=== PATIENT | male | born 1970 | race Caucasian/White ===

== ENCOUNTER 2021-09-28 03:29 | Inpatient (IN) | payer OTHER, SELFPAY ==
[2021-09-28] VITALS (10 sets, daily range): BP systolic 122–166; BP diastolic 58–88; PULSE 77–94; RESP 16–20; TEMP 36.5–36.7; O2SAT 94–99; BMI 23.6; BMI 21.5
--- NOTE | 2021-09-28 03:38 | EKG12_ITS ---
Test Reason : OVERDOSE Blood Pressure : / mmHG Vent. Rate : 099 BPM Atrial Rate : 099 BPM P-R Int : 152 ms QRS Dur : 088 ms QT Int : 382 ms P-R-T Axes : 065 047 039 degrees QTc Int : 490 ms Normal sinus rhythm Left ventricular hypertrophy Nonspecific ST and T wave abnormality Prolonged QT Abnormal ECG Confirmed by RACHELLE GLASER, TRACEY ([id number]), editor producer CORNEL DUBON ([id number]) on 09/30/2021 1:32:56 PM Referred By: ANNELIESE Confirmed By:TRACEY BUSH MD
--- NOTE | 2021-09-28 03:40 | EX.ED.VIS.PS ---
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 Narrative Narrative: Patient is a 51-year-old male who was brought to the emergency department by ambulance. His contacted police and EMS because he voiced that he wanted to harm himself. Patient informed me that he learned yesterday that his has been having an affair for 2 years. Patient requires repeated verbal stimuli to answer questions. He does admit to smoking and alcohol consumption daily. States he drinks heavily. He apparently drank alcohol when he took the unknown quantity of hydrochlorothiazide, Celexa and losartan. He has no prior history of depression or suicidal attempt. Prior similar symptoms: No Recent Illness/Hospitalization: No [facility] Medical History (Updated 09/28/21 @ 04:[address] Zach Rose MD) Alcohol abuse Asthma Bipolar disorder Hypertension Home Medications citalopram mg PO DAILY 09/28/21 [History Last Taken Unknown] hydrochlorothiazide 09/28/21 [History Last Taken Unknown] losartan 09/28/21 [History Last Taken Unknown] Allergy/AdvReac Type Severity Reaction Status Date / Time No Known Allergies Allergy Verified 09/28/21 03:38 Surgical History unable to obtain unable to obtain Social History (Updated 09/28/21 @ 03:[address] Zach Rose MD) household members: spouse Smoking Status: Current every day smoker tobacco type: cigarettes alcohol intake: current alcohol intake frequency: 3 or more drinks per day substance use type: does not use ROS ROS ED Review of Systems ROS Unobtainable: due to mental condition and due to mental status Constitutional Constitutional ED: Denies chills, fever(s) or subjective ENT ENT ED: Denies ear pain, rhinorrhea or sore throat Cardiovascular Cardiovascular: Denies chest pain or palpitations Respiratory/Chest Respiratory/Chest: Denies cough, dyspnea or dyspnea on exertion Gastrointestinal Gastrointestinal: Denies melena, nausea or vomiting Genitourinary Genitourinary ED: Denies dysuria, hematuria or urinary frequency Musculoskeletal Musculoskeletal: Denies arthralgias, back pain, myalgias or neck pain Integumentary Denies rash Neurologic Neurologic: Denies headache(s), paresthesias or weakness Psychiatric Psychiatric: Reports depression, suicidal ideation and suicidal thoughts EXAM Physical Exam Const Vital Signs: 09/28/21 03:32 09/28/21 03:43 Temperature 98.0 F Temperature Source Temporal Pulse Rate 92 84 Respiratory Rate 18 20 H Blood Pressure 148/78 H Blood Pressure Mean 101 Pulse Ox 99 Oxygen Delivery Method Room Air Positive well nourished and well developed General Appearance ED: well developed and other Patient is somnolent. He does answer questions. He is not oriented to time. ; Negative for pallor HEENT Reports TM's clear and moist mucous membranes HEENT Narrative: Nares patent. Ears normal. normocephalic and atraumatic Tympanic Membrane ED: Yes TM's clear Eyes PERRL and EOMs intact bilaterally General Eye ED: Negative for pale conjunctiva or scleral icterus Neck no lymphadenopathy, supple and no JVD General: Negative for tenderness Resp normal respiratory effort and clear to auscultation bilaterally Cardio S1 normal heart sound, S2 normal heart sound and no murmurs Rate: regular rate Rhythm: regular rhythm GI non-tender, non-distended and no masses Auscultation: normoactive bowel sounds Palpation: soft; Negative for hepatomegaly or splenomegaly Back/Spine no CVA tenderness Extremity normal to inspection General Extremety ED: Negative for edema or tenderness General Extremity: Negative for edema Neuro No oriented x3, CN's II-XII intact bilaterally and deep tendon reflexes 2+ bilaterally [place] Coma Scale: document GCS findings To Voice Obeys Commands Confused 13 Sensorium / Orientation: oriented to person and oriented to place; Negative for alert or oriented to time Sensory Exam: other There is no clonus or Babinski sign noted right or left Motor Exam: muscle tone normal throughout Psych cooperative, denies hallucinations and denies homicidal ideation; Negative for mental status grossly normal, thought process normal or denies suicidal ideation Appearance: grossly normal Attitude: withdrawn Activity / Motor Behavior: psychomotor slowing and avoids eye contact; Negative for appropriate eye contact Speech: slow Mood & Affect: depressed, sad and tearful Thought Process: impoverished Thought Content: suicidality, No delusion(s), No hallucination(s), No rumination(s) and No obsession(s) Attention / Concentration: attention grossly impaired and concentration grossly impaired; Negative for attention grossly intact or concentration grossly intact Memory / Cognition: memory grossly intact Insight: questionable Judgement: poor Skin General Skin Exam: Negative for jaundice or pallor Lesions: no lesions Rashes: no rashes MDM MDM MDM Narrative Medical decision making narrative: [place] slip was completed by me. Will obtain appropriate laboratory testing including tox screen and alcohol level. Patient was placed on the monitor. IV was established. He was made NPO. EKG was obtained to assess QT interval and rule out ischemic changes or changes due to hypokalemia or hyperkalemia. Patient has mild hypokalemia most likely due to thiazide diuretic. Since he has no EKG changes and there is no plan for emergent surgical intervention there is no need to correct him acutely. He will require IV potassium since he has altered mental status. Patient was reassessed prior to paging the hospitalist at [id number]. He still remains somnolent. He is still disoriented. He was informed that he is not permitted to go home. He has been informed that he has been pink slipped. He was informed once he is much more alert he will need to be assessed by licensed practitioner for psychiatric admission. Lab Data Attestation: I reviewed the patient's lab results. Lab results narrative: CBC and H&H are unremarkable. Coags which is an assessment of patient's liver function was normal. Comprehensive metabolic panel reveals potassium of 3.1 which is insignificant glucose of 152 which is insignificant. Comprehensive panel otherwise unremarkable. Rapid Covid test is negative. Patient's tox screen does not explain his somnolence nor does his alcohol level since he admits to drinking daily. Suspect this is due to to the combination of meds he took in an attempt to kill himself. Case was discussed with the hospitalist. He will be in observation PCU. Labs: Laboratory Results - last 24 hr 09/28/21 09/28/21 09/28/21 03:42 03:42 03:42 WBC 10.3 RBC 4.82 Hgb 15.4 Hct 45.0 MCV 93.4 MCH 32.0 MCHC 34.2 RDW Std Deviation 45.8 H RDW Coeff of Veronica 13.3 Plt Count 316 MPV 10.8 Immature Gran % (Auto) 0.300 Neut % (Auto) 70.9 H Lymph % (Auto) 18.9 L [place] % (Auto) 8.9 Eos % (Auto) 0.7 Baso % (Auto) 0.3 Absolute Neuts (auto) 7.3 Absolute Lymphs (auto) 1.94 Nucleated RBC % 0 PT 11.9 INR 0.9 Sodium 137 Potassium 3.1 L Chloride 100 Carbon Dioxide 26.0 Anion Gap 11 BUN 10 Creatinine 1.02 Estim Creat Clear Calc 92.28 Est GFR (MDRD) Af Amer 99 Est GFR (MDRD) Non-Af 82 BUN/Creatinine Ratio 9.8 L Glucose 152 H Calcium 8.8 Total Bilirubin 0.60 AST 26 ALT 28 Alkaline Phosphatase 114 Total Protein 8.1 Albumin 4.3 Globulin 3.8 Albumin/Globulin Ratio 1.1 Urine Color Urine Clarity Urine pH Ur Specific [employer] Urine Protein Urine Glucose (UA) Urine Ketones Urine Occult Blood Urine Nitrite Urine Bilirubin Urine Urobilinogen Ur Leukocyte Esterase Urine RBC Urine WBC Ur Squamous Epith Cells Urine Bacteria Urine Mucus Urine Opiates Screen Urine Methadone Screen Ur Barbiturates Screen Ur Phencyclidine Scrn Ur Amphetamines Screen U Methamphetamin-MDMA U Benzodiazepines Scrn Urine Cocaine Screen U Cannabinoids Screen Ur Drug Screen Comment Ethyl Alcohol 09/28/21 09/28/21 09/28/21 03:42 04:10 04:10 WBC RBC Hgb Hct MCV MCH MCHC RDW Std Deviation RDW Coeff of Veronica Plt Count MPV Immature Gran % (Auto) Neut % (Auto) Lymph % (Auto) [place] % (Auto) Eos % (Auto) Baso % (Auto) Absolute Neuts (auto) Absolute Lymphs (auto) Nucleated RBC % PT INR Sodium Potassium Chloride Carbon Dioxide Anion Gap BUN Creatinine Estim Creat Clear Calc Est GFR (MDRD) Af Amer Est GFR (MDRD) Non-Af BUN/Creatinine Ratio Glucose Calcium Total Bilirubin AST ALT Alkaline Phosphatase Total Protein Albumin Globulin Albumin/Globulin Ratio Urine Color Yellow Urine Clarity Clear Urine pH 7.0 [address] [employer] 1.010 Urine Protein Negative Urine Glucose (UA) Normal Urine Ketones Negative Urine Occult Blood 10 H Urine Nitrite Negative Urine Bilirubin Negative Urine Urobilinogen Normal Ur Leukocyte Esterase Negative Urine RBC 0 SEEN Urine WBC 0 SEEN Ur Squamous Epith Cells 0 SEEN Urine Bacteria 0 SEEN Urine Mucus 0 SEEN Urine Opiates Screen NEGATIVE Urine Methadone Screen NEGATIVE Ur Barbiturates Screen NEGATIVE Ur Phencyclidine Scrn NEGATIVE Ur Amphetamines Screen NEGATIVE U Methamphetamin-MDMA NEGATIVE U Benzodiazepines Scrn NEGATIVE Urine Cocaine Screen NEGATIVE U Cannabinoids Screen NEGATIVE Ur Drug Screen Comment Ethyl Alcohol 78.0 Rhythm Strip Rhythm Strip: Sinus Rhythm Rate: 98 Ectopy: None EKG Initial EKG: Attestation: I personally reviewed and interpreted this EKG as follows: Interpretation: Sinus Rhythm (Normal sinus rhythm with a ventricular rate of 99. [place] interval is 152 ms. QRS durations 88 ms. QT durations 182 ms with a QTC of 490 ms which is prolonged. [place] is normal. There is evidence of ST-T wave abnormality which is nonspecific. There is also evidence of decreased anterior force. Ther) Critical Care Time Critical Care Time: Yes Critical care time (excluding procedures): 30-74 minutes (32 min), Including time spent: (History, physical, discussion with law enforcement, interpretation of laboratory results, repeat evaluation), Discussing w/Patient &/or Family/Civil Geotechnical Engineer (Spoke to son who confirmed the pills he took.), Discussing w/Consultants (Spoke with hospitalist for admission) and Arranging Admission or Transfer Discharge Plan Dx/Rx/DC Orders Clinical Impression: Polysubstance overdose, Suicidal behavior with attempted self-injury, Acute alteration in mental status, Hypokalemia Disposition Disposition: Acute Care Hospital [facility]
[2021-09-28 03:54] LABS: Absolute Lymphocyte Count 1.94 X10^3/uL (0.83-4.51); Absolute Neutrophil Count 7.3 X10^3/uL (2.0-7.7); Basophil# 0.03 X10^3/uL; Basophil% 0.3 % (0-1); Eosinophil# 0.07 X10^3/uL; Eosinophils% 0.7 % (0-5); Hemoglobin 15.4 g/dL (13.0-16.5); Lymphocyte # 1.94 X10^3/ul (0.83-4.51); Lymphocyte % 18.9 % (19-41); Mean Corp Hgb Conc 34.2 g/dL (32-36); Mean Corpuscular Volume 93.4 fL (80-94); Mean Platelet Vol. 10.8 fl (6.2-12.0); Monocyte# 0.91 X10^3/uL; Monocyte% 8.9 % (0-10); NRBC Flagged by Analyzer 0 % (0-5); Neutrophil # 7.27 X10^3/uL (2.7-7.7); Neutrophil % 70.9 % (47-70); Platelet Count 316 K/mm3 (150-450); RBC Distribution Width CV 13.3 % (11.6-14.6); RBC Distribution Width SD 45.8 fl (35.1-43.9); Red Blood Count 4.82 M/mm3 (4.6-6.2); White Blood Count 10.3 K/mm3 (4.4-11.0)
[2021-09-28 04:01] LABS: International Normalized Ratio 0.9; Prothrombin Time (Protime)PT. 11.9 SECONDS (11.7-14.9)
[2021-09-28 04:09] LABS: ALB/GLOB Ratio 1.1 RATIO (0.9-2.4); AST(SGOT) 26 U/L (15-37); Alanine Aminotransfer ALT/SGPT 28 U/L (16-61); Albumin, Serum 4.3 g/dL (3.2-5.0); Alkaline Phosphatase 114 U/L (45-117); Anion Gap 11 (5-15); BUN 10 mg/dL (7-18); BUN/Creat Ratio 9.8 RATIO (10-20); Calcium,Total 8.8 mg/dL (8.5-10.1); Chloride 100 mmol/L (98-107); Creatinine, Serum 1.02 mg/dL (0.70-1.30); EST Glomerular Filtration Rate 82 mL/min (>60); Est Glom Filt Rate - Afr Amer 99 mL/min (>60); Estimated Creatinine Clearance 92.28 ml/min; Globulin 3.8 g/dL (2.2-4.2); Glucose 152 mg/dL (74-106); Potassium 3.1 mmol/L (3.5-5.1); Protein, Total 8.1 g/dL (6.4-8.2); Sodium Level 137 mmol/L (136-145)
[2021-09-28 04:14] LABS: Bacteria 0 SEEN /hpf (None Seen); Mucous, Urine 0 SEEN /hpf (<or=2+); Red Blood Cells-Urine 0 SEEN /hpf (0-5); Squamous Epithelial Cells - UA 0 SEEN /hpf (0-5); White Blood Cells 0 SEEN /hpf (0-5)
[2021-09-28 04:17] LABS: Color, Urine Yellow (Yellow); Glucose, Dipstick Normal (Normal); Ketone-Dipstick Negative (Negative); Leukocyte Esterase-Dipstick Negative /ul (Negative); Nitrite-Dipstick Negative (Negative); Occult Blood-Urine 10 /ul (Negative); Protein-Dipstick Negative (Negative); Urine Bilirubin Dipstick Negative (Negative); Urine Clarity Clear (Clear); Urine Urobilinogen Normal (Normal)
[2021-09-28 04:26] LABS: Amphetamine Urine VISTA NEGATIVE (<1000 ng/mL); Barbiturate Urine VISTA NEGATIVE (< 200 ng/mL); Benzodiazepine Urine VISTA NEGATIVE (< 200 ng/mL); Cocaine Urine VISTA NEGATIVE (< 300 ng/mL); Ecstacy Urine VISTA NEGATIVE (< 500 ng/mL); Methadone Urine VISTA NEGATIVE (< 300 ng/mL); PCP Urine VISTA NEGATIVE (< 25 ng/mL); THC Urine VISTA NEGATIVE (< 50 ng/mL); Vista UDS pH Range 6
--- NOTE | 2021-09-28 04:51 | PCM.HP.STD ---
HPI - General HPI Narrative FELIX ERWIN, is a 51 M with a significant history of alcohol abuse; asthma; and bipolar disorder who presents to the emergency department with overdose in a suicide attempt. Reportedly patient had that his has been cheating on him for the past 2 years. Reportedly he took extra doses of his prescribed Celexa, hydrochlorothiazide and losartan. Patient denies any chest pain, shortness of breath, headache, nausea or vomiting. [facility] Medical History Alcohol abuse Asthma Bipolar disorder Hypertension Home Medications citalopram mg PO DAILY 09/28/21 [History Last Taken Unknown] hydrochlorothiazide 09/28/21 [History Last Taken Unknown] losartan 09/28/21 [History Last Taken Unknown] Allergy/AdvReac Type Severity Reaction Status Date / Time No Known Allergies Allergy Verified 09/28/21 03:38 Family History other other (Patient denies knowledge of any family medical condition.) Surgical History no surgical history no surgical history Social History household members: spouse Smoking Status: Current every day smoker tobacco type: cigarettes alcohol intake: current alcohol intake frequency: 3 or more drinks per day substance use type: does not use ROS ROS Narrative Pertinent positives and pertinent negatives as noted in HPI. All other systems were reviewed and are negative. Vital Signs Vital Signs Vital Signs: 09/28/21 03:32 09/28/21 03:43 Temperature 98.0 F Temperature Source Temporal Pulse Rate 92 84 Respiratory Rate 18 20 H Blood Pressure 148/78 H Blood Pressure Mean 101 Pulse Ox 99 Oxygen Delivery Method Room Air Weight Weight: 77 kg Body Mass Index (BMI) 23.6 Physical Exam Narrative Physical exam: General: Well-nourished, well-developed. Head: Normocephalic, atraumatic, no tenderness Eyes: Vision is grossly intact. ENT, no trauma, moist mucous membranes, no rhinorrhea Neck: Nontender, full range of motion, no spinal tenderness, deformities, step-off CVS: Regular rate and rhythm. S1-S2 present. No murmur, gallop or rub. Respiratory : clear to auscultation bilaterally, chest wall nontender, no wheezing Abdomen: Soft, nontender, nondistended, normal bowel sounds, no masses : Deferred Back: Nontender, no CVA tenderness, no midline spinal tenderness, deformities, step-offs Extremities: Nontender full range of motion, no trauma Skin: Normal color, no trauma, abrasions Neuro: Hypoalert. Patient knows his names. He does not answer further orientation questions. All what he says is that he is in a room. He want to go home. Psychiatry: Depressed. Slow speech. Results Lab / Micro Data Result Diagrams: 09/28/21 03:42 09/28/21 03:42 Labs: Laboratory Results - last 24 hr 09/28/21 03:42: WBC 10.3, RBC 4.82, Hgb 15.4, Hct 45.0, MCV 93.4, MCH 32.0, MCHC 34.2, RDW Std Deviation 45.8 H, RDW Coeff of Veronica 13.3, Plt Count 316, MPV 10.8, Immature Gran % (Auto) 0.300, Neut % (Auto) 70.9 H, Lymph % (Auto) 18.9 L, [place] % (Auto) 8.9, Eos % (Auto) 0.7, Baso % (Auto) 0.3, Absolute Neuts (auto) 7.3, Absolute Lymphs (auto) 1.94, Nucleated RBC % 0 09/28/21 03:42: PT 11.9, INR 0.9 09/28/21 03:42: Sodium 137, Potassium 3.1 L, Chloride 100, Carbon Dioxide 26.0, Anion Gap 11, BUN 10, Creatinine 1.02, Estim Creat Clear Calc 92.28, Est GFR (MDRD) Af Amer 99, Est GFR (MDRD) Non-Af 82, BUN/Creatinine Ratio 9.8 L, Glucose 152 H, Calcium 8.8, Total Bilirubin 0.60, AST 26, ALT 28, Alkaline Phosphatase 114, Total Protein 8.1, Albumin 4.3, Globulin 3.8, Albumin/Globulin Ratio 1.1 09/28/21 03:42: Ethyl Alcohol 78.0 09/28/21 04:10: Urine Color Yellow, Urine Clarity Clear, Urine pH 7.0, Ur Specific [place] 1.010, Urine Protein Negative, Urine Glucose (UA) Normal, Urine Ketones Negative, Urine Occult Blood 10 H, Urine Nitrite Negative, Urine Bilirubin Negative, Urine Urobilinogen Normal, Ur Leukocyte Esterase Negative, Urine RBC 0 SEEN, Urine WBC 0 SEEN, Ur Squamous Epith Cells 0 SEEN, Urine Bacteria 0 SEEN, Urine Mucus 0 SEEN 09/28/21 04:10: Urine Opiates Screen NEGATIVE, Urine Methadone Screen NEGATIVE, Ur Barbiturates Screen NEGATIVE, Ur Phencyclidine Scrn NEGATIVE, Ur Amphetamines Screen NEGATIVE, U Methamphetamin-MDMA NEGATIVE, U Benzodiazepines Scrn NEGATIVE, Urine Cocaine Screen NEGATIVE, U Cannabinoids Screen NEGATIVE, Ur Drug Screen Comment Micro: Microbiology 09/28/21 03:42 Nasal Secretion SARS-CoV-2 Antigen (Rapid) - Final Rhythm Strip Rhythm Strip: Sinus Rhythm Rate: 98 Ectopy: None Assessment & Plan Assessment/Plan (1) Polysubstance overdose: QUALIFIERS: Encounter type: initial encounter Injury intent: intentional self-harm Qualified Code(s): T50.902A - Poisoning by unspecified drugs, medicaments and biological substances, intentional self-harm, initial encounter (2) Chronic alcoholism: (3) Suicide attempt: (4) Tobacco abuse: (5) Hypokalemia: PLAN: Polysubstance overdose and suicidal attempt Will observe at the hospital. Suicidal precautions. EKG showed elongation of QTc. Avoid QTC prolongation drugs. Keep n.p.o. until patient is alert. Hold all home medications. Review of labs showed normal CBC. Hypokalemia Potassium of 3.1. Check magnesium. Trend CMP. Tobacco abuse Counseled liquid nicotine patch. Alcoholism. Patient drinks about 8 cans of beer per day. He has been drinking for years. At this time no phenobarbital or Ativan will be ordered since patient is hypoalert. Thiamine IV and folic IV ordered. Hypertension Blood pressure is not within goal. However for now we will hold all blood pressure medications at this time. Trend blood pressures. DVT prophylaxis: Low risk on observation status SCD ordered. Charges/Coding Multi Select Codes Visit Charges Observation E&M Codin Initial observation care L3
[2021-09-28 06:14] LABS: Magnesium 2.5 mg/dL (1.6-2.6)
--- NOTE | 2021-09-28 07:42 | PCS.PANDOC ---
PANDEMIC DOCUMENTATION INITIATED: Date: 05/05/2021 Time: 190
--- NOTE | 2021-09-28 07:54 | EKG12_ITS ---
Test Reason : OVERDOSE Blood Pressure : / mmHG Vent. Rate : 081 BPM Atrial Rate : 081 BPM P-R Int : 160 ms QRS Dur : 082 ms QT Int : 400 ms P-R-T Axes : 077 064 039 degrees QTc Int : 464 ms Normal sinus rhythm Normal ECG When compared with ECG of 28-SEP-2021 03:55, MANUAL COMPARISON REQUIRED, DATA IS UNCONFIRMED Confirmed by JENARO GLASER, OLIVA ([id number]), publications editor LARS NOBLE ([id number]) on 10/03/2021 7:59:46 AM Referred By: NICOLÁS Confirmed By:ALINA EASON MD
[2021-09-28] MEDS: Potassium Chloride Oral Tablet 20 MEQ 40 MEQ PO (09:21)
[2021-09-28] MEDS: Folic Acid 1 MG Tablet PO (11:48)
[2021-09-28] MEDS: Thiamine Hydrochloride 100 MG Tablet PO (11:48)
[2021-09-28 12:54] LABS: ALB/GLOB Ratio 1.1 RATIO (0.9-2.4); AST(SGOT) 22 U/L (15-37); Alanine Aminotransfer ALT/SGPT 27 U/L (16-61); Albumin, Serum 3.9 g/dL (3.2-5.0); Alkaline Phosphatase 108 U/L (45-117); Anion Gap 8 (5-15); BUN 9 mg/dL (7-18); BUN/Creat Ratio 11.6 RATIO (10-20); Calcium,Total 8.6 mg/dL (8.5-10.1); Chloride 105 mmol/L (98-107); Creatinine, Serum 0.78 mg/dL (0.70-1.30); EST Glomerular Filtration Rate 113 mL/min (>60); Est Glom Filt Rate - Afr Amer 136 mL/min (>60); Estimated Creatinine Clearance 115.54 ml/min; Globulin 3.7 g/dL (2.2-4.2); Glucose 108 mg/dL (74-106); Potassium 3.9 mmol/L (3.5-5.1); Protein, Total 7.6 g/dL (6.4-8.2); Sodium Level 139 mmol/L (136-145)
--- NOTE | 2021-09-28 17:22 | PN.HOSP_ITS ---
Hospitalist Note Patient was admitted early this morning with an intentional overdose of Celexa, hydrochlorothiazide, losartan. Since his admission his mental status has markedly improved and appears to be back to baseline. His blood pressures have been remained stable and in fact are mildly elevated. This should be remedied with the reinitiation of his home antihypertensives. He had hypokalemia on presentation but this has resolved with potassium supplementation with a repeat potassium of 3.9. At this time is medically stable for discharge for psychia tric care. [place] slip has been filled out.
--- NOTE | 2021-09-28 17:48 | NURSING ---
Nikita at [facility] called to accept patient. Dr. Mendoza is the accepting physician. To be admitted to the [facility] unit.
--- NOTE | 2021-09-28 18:10 | NURSING ---
This RN called and gave report to ANTONINO Gonzalez at [facility].
--- NOTE | 2021-09-28 18:29 | DS.PCM_ITS ---
Providers Date of Admission: 09/28/21 Primary Care Physician: Kristen Primary Care Phys Reason For Visit: OVERDOSE IN SUICIDAL ATTEMPT Diagnosis Discharge Diagnosis (1) Polysubstance overdose: Status: Acute Code(s): T50.901A - Poisoning by unspecified drugs, medicaments and biological substances, accidental (unintentional), initial encounter Qualifiers: Encounter type: initial encounter Injury intent: intentional self-harm Qualified Code(s): T50.902A - Poisoning by unspecified drugs, medicaments and biological substances, intentional self-harm, initial encounter (2) Chronic alcoholism: Status: Chronic Code(s): F10.20 - Alcohol dependence, uncomplicated (3) Suicide attempt: Status: Acute Code(s): T14.91XA - Suicide attempt, initial encounter (4) Tobacco abuse: Status: Acute Code(s): Z72.0 - Tobacco use (5) Hypokalemia: Status: Acute Code(s): E87.6 - Hypokalemia Medications at Discharge Home Medications hydrochlorothiazide 09/28/21 losartan 09/28/21 Hospital Course Operations None Procedures None Summary of Care Provided Minutes Spent on Discharge: 24 Hospital Course: Mr. Garg is a 51-year-old white male who presented to the emergency department early this morning after an intentional overdose of his prescribed Celexa, hydrochlorothiazide, and losartan. Evidently he recently found out that his had been cheating on him for the past 2 years so he took extra doses of his prescribed medications. On admission he was alert and oriented and denied any symptoms. He was admitted to the hospital for observation and placed on suicidal precautions. His initial EKG showed a prolonged QTC but repeat EKG this morning showed a QTC corrected of 460. His initial potassium was 3.1 and this was replaced with oral potassium 40 mEq. His potassium improved to 3.9 prior to discharge. His blood pressure remained stable despite reported overdoses of losartan hydrochlorothiazide and the lowest reading we had was 122/58. His blood pressure prior to discharge was 150/70. Given his medical stability he was evaluated by crisis and deemed appropriate for acute psychiatric hospital admission. He was reinitiated on his home antihypertensives but his home Celexa at this time to allow the psychiatrist to reevaluate him for different antidepressant needs. He was discharged on 09/28/2021 in stable condition. Discharge diagnoses: Intentional overdose of prescription medications Hypokalemia-resolved Prolonged QTC-corrected Depression Alcohol abuse Hypertension Tobacco abuse Physical Exam Const alert, oriented x3, no apparent distress, average body habitus, no limitations and healthy appearing Constitutional Narrative: Middle-aged white male sitting up in bed, daughter at bedside, eye contact is fair but poor after I told him he cannot leave and he has to go to a psychiatric facility General Appearance: cooperative, comfortable, well kempt and well developed Orientation / Consciousness: awake Exam Limitations: no limitations HEENT normocephalic and head/scalp atraumatic Resp normal respiratory effort, no retractions, no use of accessory muscles and clear to auscultation bilaterally Resp Narrative: Diffusely diminished but clear Auscultation: Negative for crackles, rales, rhonchi or wheezes Cardio regular rate, regular rhythm, S1 normal heart sound, S2 normal heart sound, no murmurs, no rub, no gallops, no clicks and no JVD GI normal to inspection, nondistended, normoactive bowel sounds, soft to palpation, non-tender and non-distended Extremity normal to inspection and no clubbing, cyanosis or edema Neuro oriented x3, CN's II-XII intact bilaterally, moves all extremities and no focal motor deficits Sensorium / Orientation: awake and alert Speech: speech normal Psych Psych Narrative: Eye contact is poor, affect is flat, mood is depressed Mood & Affect: depressed Weight / BMI Weight Weight: 72.1 kg Body Mass Index (BMI) 21.5 ABG / Lab / Microbiology Data Result Diagrams: 09/28/21 03:42 09/28/21 12:10 Laboratory: Laboratory Results - last 24 hr 09/28/21 03:42: WBC 10.3, RBC 4.82, Hgb 15.4, Hct 45.0, MCV 93.4, MCH 32.0, MCHC 34.2, RDW Std Deviation 45.8 H, RDW Coeff of Veronica 13.3, Plt Count 316, MPV 10.8, Immature Gran % (Auto) 0.300, Neut % (Auto) 70.9 H, Lymph % (Auto) 18.9 L, [place] % (Auto) 8.9, Eos % (Auto) 0.7, Baso % (Auto) 0.3, Absolute Neuts (auto) 7.3, Absolute Lymphs (auto) 1.94, Nucleated RBC % 0 09/28/21 03:42: PT 11.9, INR 0.9 09/28/21 03:42: Sodium 137, Potassium 3.1 L, Chloride 100, Carbon Dioxide 26.0, Anion Gap 11, BUN 10, Creatinine 1.02, Estim Creat Clear Calc 92.28, Est GFR (MDRD) Af Amer 99, Est GFR (MDRD) Non-Af 82, BUN/Creatinine Ratio 9.8 L, Glucose 152 H, Calcium 8.8, Total Bilirubin 0.60, AST 26, ALT 28, Alkaline Phosphatase 114, Total Protein 8.1, Albumin 4.3, Globulin 3.8, Albumin/Globulin Ratio 1.1 09/28/21 03:42: Ethyl Alcohol 78.0 09/28/21 03:42: Magnesium 2.5 09/28/21 04:10: Urine Color Yellow, Urine Clarity Clear, Urine pH 7.0, Ur Specific [place] 1.010, Urine Protein Negative, Urine Glucose (UA) Normal, Urine Ketones Negative, Urine Occult Blood 10 H, Urine Nitrite Negative, Urine Bilirubin Negative, Urine Urobilinogen Normal, Ur Leukocyte Esterase Negative, Urine RBC 0 SEEN, Urine WBC 0 SEEN, Ur Squamous Epith Cells 0 SEEN, Urine Bacteria 0 SEEN, Urine Mucus 0 SEEN 09/28/21 04:10: Urine Opiates Screen NEGATIVE, Urine Methadone Screen NEGATIVE, Ur Barbiturates Screen NEGATIVE, Ur Phencyclidine Scrn NEGATIVE, Ur Amphetamines Screen NEGATIVE, U Methamphetamin-MDMA NEGATIVE, U Benzodiazepines Scrn NEGATIVE, Urine Cocaine Screen NEGATIVE, U Cannabinoids Screen NEGATIVE, Ur Drug Screen Comment 09/28/21 12:10: Sodium 139, Potassium 3.9, Chloride 105, Carbon Dioxide 26.0, Anion Gap 8, BUN 9, Creatinine 0.78, Estim Creat Clear Calc 115.54, Est GFR (MDRD) Af Amer 136, Est GFR (MDRD) Non-Af 113, BUN/Creatinine Ratio 11.6, Glucose 108 H, Calcium 8.6, Total Bilirubin 0.60, AST 22, ALT 27, Alkaline Phosphatase 108, Total Protein 7.6, Albumin 3.9, Globulin 3.7, Albumin/Globulin Ratio 1.1 09/28/21 12:10: Potassium Cancelled Microbiology: Microbiology 09/28/21 03:42 Nasal Secretion SARS-CoV-2 Antigen (Rapid) - Final D/C Instructions Discharge Diet: Low fat / Low cholesterol Meaningful Use Info Meaningful Use Diagnoses (Choose all that apply): None applicable Discharge Plan Admission Admit Date/Time: 09/28/21 04:47 Primary Reason for Your Visit: Intentional overdose Attending Provider: Sabi Thakkar Primary Care Provider: Care Physician,No Primary Discharge Orders/Prescriptions Prescriptions: Continued losartan 25 mg Tablet RF: 0 hydrochlorothiazide 12.5 mg Capsule RF: 0 Discontinued citalopram 10 mg Tablet PO DAILY RF: 0 Referrals / Follow Up: Care Physician,No Primary [Primary Care Provider] - Disposition Disposition (needs filled in before D/C Order can be placed): Psychiatric Hospital or Unit Charges/Coding Visit Charges Inpatient E&M: 74745 Disch Hosp
== END 2021-09-28 19:24 | DRG 914 ==
LOC: ED 04:45 → PCU 06:53
PROVIDERS: Admitting Provider Hospitalist; Emergency Provider Emergency Medicine; Visit Provider Internal Medicine
DX: T14.91XA Suicide attempt, initial encounter (principal); E87.6 Hypokalemia; T46.5X2A Poisoning by other antihypertensive drugs, intentional self-harm, initial encounter; T43.222A Poisoning by selective serotonin reuptake inhibitors, intentional self-harm, initial encounter; F31.9 Bipolar disorder, unspecified; T50.2X2A Poisoning by carbonic-anhydrase inhibitors, benzothiadiazides and other diuretics, intentional self-harm, initial encounter; F10.229 Alcohol dependence with intoxication, unspecified; F17.210 Nicotine dependence, cigarettes, uncomplicated; I10 Essential (primary) hypertension; J45.909 Unspecified asthma, uncomplicated; Z20.822 Contact with and (suspected) exposure to COVID-19; R94.31 Abnormal electrocardiogram [ECG] [EKG]; Y93.9 Activity, unspecified; Y99.9 Unspecified external cause status; Y92.9 Unspecified place or not applicable
CPT/HCPCS: 80053; 80307; 81001; 82077; 83735; 85025; 85610; 87426; 93005; 99218; 99285; G0378